=== PATIENT | male | born 1970 | race African-American/Black ===

== ENCOUNTER 2019-08-10 06:13 | Inpatient (IN) | payer MEDICAID ==
[~2019-08-10] VITALS: Ht 188 cm; Wt 132.7 kg
[2019-08-10 07:52] LABS: CHLORIDE 107 mEq/L (98-107)
[2019-08-10 07:53] LABS: INR 1.1; PROTHROMBIN TIME 10.9 sec (9.6-11.0)
[2019-08-10 08:10] LABS: BASOPHILS % 0.7 % (0.0-2.0); EOSINOPHILS % 5.2 % (0.0-5.0); HEMATOCRIT. 46.8 % (42.0-52.0); HEMOGLOBIN. 15.5 g/dL (14.0-18.0); LYMPHOCYTES % 42.6 % (20.0-50.0); MEAN CORPUSCULAR HEMOGLOBIN 29.9 pg (28.0-32.0); MEAN CORPUSCULAR VOLUME 90.3 fL (80.0-94.0); MONOCYTES % 12.6 % (2.0-8.0); NEUTROPHILS % 38.9 % (40.0-76.0); PLATELET 205 x1000/uL (130-400); RED BLOOD CELL COUNT 5.18 mill/uL (4.7-6.1); RED CELL DISTRIBUTION WIDTH 13.5 % (11.6-14.6)
[2019-08-10] MEDS ORDERED: RIVA20TA PO (09:20)
[2019-08-10] MEDS ORDERED: AMLO5TAB88 PO (09:20)
[2019-08-10] MEDS ORDERED: UBID100C12 PO (09:20)
[2019-08-10] MEDS ORDERED: SACU1TAB PO (09:20)
[2019-08-10] MEDS ORDERED: FURO40TA5 PO (09:20)
[2019-08-10] MEDS ORDERED: CARV12.545 PO (09:20)
[2019-08-10] MEDS ORDERED: HEPARIN 1,000 UNITS PREMIX 2,000 ML IV ONE (09:27)
[2019-08-10] MEDS ORDERED: HEPARIN SODIUM 1,000 UNIT/1ML VIAL IV ONE (09:56)
[2019-08-10] MEDS ORDERED: LIDOCAINE HCL 1% 20ML VIAL (Pyxis) INJ ONE (10:58)
[2019-08-10] MEDS ORDERED: DOBUTAMINE 250MG PREMIX 250 ML IV ONE (12:47)
[2019-08-10] MEDS ORDERED: ATROPINE SULFATE 1MG/10ML SYR IV PRN (13:30)
[2019-08-10] MEDS ORDERED: ACETAMINOPHEN 325MG TABLET PO PRN (13:30)
[2019-08-10] MEDS ORDERED: HYDROMORPHONE HCL/PF 2MG/ML CPJ IV PRN (14:45)
[2019-08-10 16:00] VITALS: BP 138/78
[2019-08-10 16:46] VITALS: BP 138/78
[2019-08-10] MEDS ORDERED: RIVAROXABAN 20 MG TABLET PO SCH (17:20)
[2019-08-10] MEDS: AMLODIPINE 5MG TABLET PO SCH (17:58)
[2019-08-10 18:00] VITALS: BP 142/77
[2019-08-10 20:00] VITALS: BP 143/84
[2019-08-10 22:00] VITALS: BP 135/93
[2019-08-10] MEDS: CARVEDILOL 12.5MG TABLET PO SCH (22:07)
[2019-08-11] VITALS (10 sets, daily range): BP systolic 117–149; BP diastolic 31–98
[2019-08-11 07:16] LABS: BASOPHILS % 0.4 % (0.0-2.0); EOSINOPHILS % 1.2 % (0.0-5.0); HEMATOCRIT. 37.4 % (42.0-52.0); HEMOGLOBIN. 12.3 g/dL (14.0-18.0); LYMPHOCYTES % 24.2 % (20.0-50.0); MEAN CORPUSCULAR HEMOGLOBIN 29.6 pg (28.0-32.0); MEAN CORPUSCULAR VOLUME 89.9 fL (80.0-94.0); MEAN PLATELET VOLUME 9.4 fl (7.4-10.4); MONOCYTES % 10.5 % (2.0-8.0); NEUTROPHILS % 63.7 % (40.0-76.0); PLATELET 168 x1000/uL (130-400); RED BLOOD CELL COUNT 4.16 mill/uL (4.7-6.1); RED CELL DISTRIBUTION WIDTH 13.8 % (11.6-14.6)
[2019-08-11 07:52] LABS: CHLORIDE 109 mEq/L (98-107)
[2019-08-11] MEDS ORDERED: FUROSEMIDE 40MG TABLET PO SCH (09:00)
[2019-08-11] MEDS: CARVEDILOL 12.5MG TABLET PO SCH (09:27)
[2019-08-11] MEDS: AMLODIPINE 5MG TABLET PO SCH (09:27)
== END 2019-08-11 17:10 | disposition home or self-care (01) | DRG 175 ==
LOC: OR 06:13 → 3WST 06:14
PROVIDERS: ADMIT Internal Medicine Clinical Cardiac Electrophysiology; ATTEND Internal Medicine Clinical Cardiac Electrophysiology
PROC: 4A0234Z Measurement of Cardiac Electrical Activity, Percutaneous Approach (ICD-10-PCS; principal; 2019-08-10)
PROC: B245ZZZ Ultrasonography of Left Heart (ICD-10-PCS; 2019-08-10)
PROC: 02583ZZ Destruction of Conduction Mechanism, Percutaneous Approach (ICD-10-PCS; 2019-08-10)
DX: I48.92 Unspecified atrial flutter (principal); I11.0 Hypertensive heart disease with heart failure; I50.22 Chronic systolic (congestive) heart failure; I42.0 Dilated cardiomyopathy; E78.5 Hyperlipidemia, unspecified
CPT/HCPCS: 36415; 80048; 85025; 93005; 93613; 93621; 93623; 93653; 93662; C1730; C1731; C1732; C1759; C1893; J1250; J1644; J3490; A4315